=== PATIENT | male | born 1960 | race Caucasian/White ===

== ENCOUNTER 2017-10-03 11:38 | Inpatient (IN) | payer OTHER, BC ==
[~2017-10-03] VITALS: Ht 162.6 cm; Wt 107.2 kg
[~2017-10-03 11:38] MED LIST: ALEVE220 M2 PO; ASPIR 8181 M1 PO; ATORVASTATIN CA40 MG PO; AUGMENTIN875 MG PO; CARDIZEM CD,CA120 MG PO; LOSARTAN POTAS100 MG PO; METFORMIN HCL500 MG PO; METOLAZONE5 MG PO; POTASSIUM CHLO20 ME1 PO; TAMSULOSIN HCL0.4 MG PO
[2017-10-03 13:05] LABS: HEMATOCRIT 42.3 % (38.0-50.0); HEMOGLOBIN 14.8 G/DL (12.5-16.6); MCH 31.1 PG (29.0-34.0); PLATELET COUNT 148 K/uL (156-360); RBC DIS.WIDTH-CV 12.8 % (11.8-14.6); RBC DIS.WIDTH-SD 41.7 % (39-53); RED BLOOD COUNT 4.76 M/uL (4.00-5.50); WHITE BLOOD COUNT 20.2 K/uL (4.1-10.2)
[2017-10-03 13:06] LABS: MCV 88.9 FL (86-99)
[2017-10-03 13:15] LABS: ALBUMIN 4.1 g/dL (3.2-4.8); CHLORIDE 94 mEq/L (99-109)
[2017-10-03 13:16] LABS: POTASSIUM 2.8 mEq/L (3.7-5.4); SODIUM 130 mEq/L (136-147)
[2017-10-03 13:17] LABS: GLUCOSE 115 mg/dL (70-99)
[2017-10-03 13:18] LABS: TOTAL PROTEIN 7.2 g/dL (6.4-8.3)
[2017-10-03 13:19] LABS: TOTAL BILIRUBIN 1.5 mg/dL (0.0-1.0)
[2017-10-03 13:21] LABS: ALKALINE PHOSPHATASE 47 IU/L (3-129); CREATININE 1.2 mg/dL (0.6-1.3); GFR ESTIMATE (CALCULATED) > 59 mL/min/ (58.99-99999)
[2017-10-03 13:22] LABS: UREA NITROGEN (BUN) 15 mg/dL (9-23)
[2017-10-03 13:23] LABS: AST (GOT) 31 IU/L (2-34)
[2017-10-03 13:24] LABS: ALT (GPT) 21 IU/L (3-49); LIPASE 35 U/L (1.0-51.0)
[2017-10-03 13:25] LABS: TROP-I INTERPRETATION NEGATIVE; TROPONIN-I 0.06 ng/mL (0.0-0.30)
[2017-10-03 14:03] LABS: APPEARANCE CLEAR ((CLEAR)); BILIRUBIN NEGATIVE; BLOOD SMALL; COLOR YELLOW ((YELLOW)); GLUCOSE (STRIP) NEGATIVE; KETONES 20; LEUKOCYTES NEGATIVE; NITRITE NEGATIVE; PROTEIN (STRIP) 30; SPECIFIC GRAVITY 1.012 (1.000-1.030); UROBILINOGEN 0.2 MG/DL (0.2-1.0)
[2017-10-03 14:28] LABS: BACTERIA RARE /HPF; EPITHELIAL CELLS RARE /HPF; MUCUS TRACE /LPF; RED BLOOD CELLS 0-5 /HPF (0-5); UCUL ADDED? NO; WHITE BLOOD CELLS 0-5 /HPF (0-5)
[2017-10-03 14:56] LABS: C DIFF TOXIN NEGATIVE (NEGATIVE)
[2017-10-03] MEDS ORDERED: FINASTERIDE5 MG PO (17:16)
[2017-10-03] MEDS ORDERED: HYDROCHLOROTHIA25 MG PO (17:18)
[2017-10-03] MEDS ORDERED: CARTIA XT120 MG PO (17:20)
[2017-10-03 19:45] VITALS: BP 142/76
[2017-10-04] VITALS: BP 130/69
[2017-10-04 03:52] VITALS: BP 127/75
[2017-10-04 05:43] LABS: HEMOGLOBIN 14.2 G/DL (12.5-16.6); MCH 30.5 PG (29.0-34.0); MCHC 33.8 G/DL (30.0-36.0); MCV 90.3 FL (86-99); PLATELET COUNT 143 K/uL (156-360); RBC DIS.WIDTH-CV 12.9 % (11.8-14.6); RBC DIS.WIDTH-SD 42.6 % (39-53); RED BLOOD COUNT 4.65 M/uL (4.00-5.50); WHITE BLOOD COUNT 14.9 K/uL (4.1-10.2)
[2017-10-04 06:06] LABS: CHLORIDE 100 MEQ/L (99-109); GFR ESTIMATE (CALCULATED) > 59 mL/min/ (58.99-99999); GLUCOSE 99 mg/dL (70-99); POTASSIUM 3.1 MEQ/L (3.7-5.4); UREA NITROGEN (BUN) 15 mg/dL (9-23)
[2017-10-04 06:40] LABS: SODIUM 137 MEQ/L (136-147)
[2017-10-04 07:50] VITALS: BP 146/82
[2017-10-04 11:41] VITALS: BP 122/70
[2017-10-04 15:37] VITALS: BP 134/89
[2017-10-04 23:46] VITALS: BP 131/81
[2017-10-05 03:45] VITALS: BP 139/83
[2017-10-05 08:39] LABS: HEMATOCRIT 42.4 % (38.0-50.0); HEMOGLOBIN 14.7 G/DL (12.5-16.6); MCH 32.1 PG (29.0-34.0); MCHC 34.7 G/DL (30.0-36.0); MCV 92.6 FL (86-99); PLATELET COUNT 127 K/uL (156-360); RBC DIS.WIDTH-SD 43.7 % (39-53); RED BLOOD COUNT 4.58 M/uL (4.00-5.50)
[2017-10-05 08:40] VITALS: BP 116/63
[2017-10-05 08:52] LABS: POTASSIUM 3.3 mEq/L (3.7-5.4); SODIUM 139 mEq/L (136-147)
[2017-10-05 08:53] LABS: GLUCOSE 111 mg/dL (70-99)
[2017-10-05 08:54] LABS: CHLORIDE 108 mEq/L (99-109)
[2017-10-05 08:57] LABS: CREATININE 0.9 mg/dL (0.6-1.3); GFR ESTIMATE (CALCULATED) > 59 mL/min/ (58.99-99999)
[2017-10-05 08:58] LABS: UREA NITROGEN (BUN) 11 mg/dL (9-23)
[2017-10-05 11:42] VITALS: BP 102/59
[2017-10-05 11:50] VITALS: BP 145/73
[2017-10-05 16:14] VITALS: BP 145/81
[2017-10-05 23:31] VITALS: BP 129/63
[2017-10-06 06:45] LABS: CHLORIDE 107 MEQ/L (99-109); CREATININE 0.8 MG/DL (0.6-1.3); GFR ESTIMATE (CALCULATED) > 59 mL/min/ (58.99-99999); GLUCOSE 99 mg/dL (70-99); POTASSIUM 3.6 MEQ/L (3.7-5.4); SODIUM 139 MEQ/L (136-147); UREA NITROGEN (BUN) 10 mg/dL (9-23)
[2017-10-06 07:49] VITALS: BP 148/87
[2017-10-06 15:14] VITALS: BP 129/78
[2017-10-06 23:38] VITALS: BP 139/74
[2017-10-07 08:22] VITALS: BP 157/84
[2017-10-07] MEDS ORDERED: CIPRO500 MG PO (10:32)
[2017-10-07] MEDS ORDERED: FLAGYL500 MG PO (10:32)
== END 2017-10-07 11:13 | disposition home or self-care (01) | DRG 392 ==
LOC: EME 11:38 → EDOF 15:51 → 4EAST 15:51 → CANRESERV 15:54 → ENRESERV 15:54 → ENRESERVTM 15:54 → ENRESERV 17:46 → 4EAST 19:43 → ENRESERV 10-04 12:49 → 3EAST 10-04 15:23
PROVIDERS: Hospitalist; Internal Medicine; Nurse Practitioner Family
DX: A09 Infectious gastroenteritis and colitis, unspecified (principal); R50.81 Fever presenting with conditions classified elsewhere; E86.0 Dehydration; E87.6 Hypokalemia; G47.33 Obstructive sleep apnea (adult) (pediatric); E11.9 Type 2 diabetes mellitus without complications; E78.5 Hyperlipidemia, unspecified; G47.10 Hypersomnia, unspecified; I10 Essential (primary) hypertension
CPT/HCPCS: 36415; 70450; 71046; 74177; 80048; 80053; 81003; 82948; 83605; 83630; 83690; 84132 91; 84443; 84484; 85025; 85027; 87040; 87177; 87329; 87493; 87506; 93005; 99281; 99285; J0744; J1650; J2543; J3480; J7030; J7050; S0030